=== PATIENT | female | born 1995 | race Caucasian/White ===

== ENCOUNTER → 2021-03-11 | Day surgery (SDC) | payer OTHER ==
[~2021-03-11] MED LIST: BIRTH CONTROL PILL PO; OXYCODONE HCL 55 MG PO; PROTONIX40 M2 PO; SENNA PLUS TAB1 EACH PO
--- NOTE | ~2021-03-11 | OP ---
[address] [address] OPERATIVE REPORT Name: THADDEUS LINDSEYSOPHIA Room: [facility].#: [id number] Admission: 03/11/21 Attend Phys: Collins Keith DO Discharge: Date of : 89 Report #: [id number] THIS REPORT FOR: cc: Ethan Ferrara MD, Richard K. MD Kramer, Adam P. DO ~ DATE OF SURGERY: 03/11/2021 PREOPERATIVE DIAGNOSIS: Umbilical hernia. POSTOPERATIVE DIAGNOSIS: Umbilical hernia. PROCEDURE PERFORMED: Open umbilical hernia repair with a 4.[address] mesh. ANESTHESIA: General and local. ESTIMATED BLOOD LOSS: 5 mL SPECIMENS: None. HISTORY OF PRESENT ILLNESS: The patient is a 25-year-old female who complained of periumbilical abdominal pain for the last few months. She did have a small umbilical hernia noted on exam. We discussed repair at length to include risks, benefits and alternatives and she agreed to proceed with surgery. DESCRIPTION OF PROCEDURE: After the consent was obtained, the patient was taken to the operating room and placed in the supine position. SCDs applied to bilateral lower extremities; safety belt placed across the patient's waist. Two grams Ancef given for surgical prophylaxis. The patient underwent general endotracheal anesthesia without any complication. The patient's abdomen was prepped and draped in the standard sterile fashion. Timeout was performed, confirming the patient, procedure. An 11 blade scalpel was used to make a small incision just below the umbilicus. Electrocautery was used to dissect down to the level of fascia. Metzenbaum scissors were used to dissect the hernia sac off the umbilical stalk. Hernia sac was then reduced into the abdomen. The fascial defect was actually made slightly larger using electrocautery. A 4.[address] mesh was inserted into the abdomen. The 0 Prolene sutures were used to then carefully reapproximated the fascia over top of the mesh, taking care to include mesh with each bite. After 3 stitches of 0 Prolene, the fascial defect was completely closed, the hernia was reduced into the abdomen. Mesh was secured in place. The umbilical stalk was reapproximated to the fascia using 2-0 Vicryl. Subcutaneous tissue reapproximated with 3-0 Vicryl and skin reapproximated with 4-0 Monocryl. All needle, instrument and [place] [address] OPERATIVE REPORT Name: SOPHIA WEI Room: [facility]#: [id number] Admission: 03/11/21 Attend Phys: Collins Keith DO Discharge: Date of : 89 Report #: [id number] correct x 2 at the end of the case. The patient was awoken from general anesthesia and transferred to PACU in stable condition. By: [id number] alicia Brown
[2021-03-11 08:12] LABS: HEMATOCRIT 38.1 % (37.0-47.0); HEMOGLOBIN 13.1 gm/dL (12.0-15.0); MCH 31.2 pg (26.0-34.0); MCHC 34.3 g/dL (28.0-37.0); MPV 8.7 fl. (7.2-11.1); RBC 4.18 mil/uL (4.20-5.00); RDW-CV 12.3 % (10.5-14.5)
== END | disposition home or self-care (01) ==
LOC: M.SUR 07:38
PROVIDERS: ATTEND Surgery
DX: K42.9 Umbilical hernia without obstruction or gangrene (principal); R10.33 Periumbilical pain; Z98.890 Other specified postprocedural states; Z79.899 Other long term (current) drug therapy; Z20.822 Contact with and (suspected) exposure to COVID-19